=== PATIENT | female | born 1980 | race Caucasian/White ===

== ENCOUNTER 2016-11-15 10:50 | Outpatient (CLI) | payer OTHER ==
[~2016-11-15 10:50] MED LIST: B-650 MG; CORRECTOL100 MG PO; IBUPROFEN200 M1 PO; LANSINOH0.25 GM TOP; OXYCODONE/ACETA1 TA1 PO; PRENATAL1 TAB; TYLENOL325 MG PO; UNISOM25 MG; ZANTAC 150 MAX150 MG PO
--- NOTE | 2016-11-15 12:45 | DIAGNOSTIC IMAGING REPORT ---
PROCEDURE: US OB 1ST TRIMESTER W/TRANSVAG INDICATION: SIZE AND DATES TECHNIQUE: Seay scale, color, and spectral Doppler transabdominal and endovaginal sonographic images of the first trimester gravid uterus were obtained. COMPARISON: None during this . FINDINGS: TRANSABDOMINAL SCANS: There is a gestational sac eccentrically located in the fundal endometrium with mild decidual response. The uterus is anteverted and anteflexed. A thin-walled right ovarian cyst measures 4.7 cm. No micaela ovarian fluid. Left ovary was not seen transabdominally. TRANSVAGINAL SCANS: The gestational sac is lobulated, partially involuting. A pole is present with an average crown-rump length of 5.1 mm which corresponds to a 0-hmhe-4-day gestation. A normal yolk sac measuring 4 mm is visible. There is detectable cardiac activity and pole at a rate of 110 beats per minute. No perigestational hemorrhage. The cervix is closed and measures about 3.2 cm in length. The left ovary has a normal appearance. Simple right ovarian cyst measuring 4.8 cm is present. No free pelvic fluid. IMPRESSION: 1. There is a live intrauterine with crown rump length corresponding to a 7-clgf-8-day gestational age. Heart rate of 110 is low. Gestational sac is irregular, partially involuted, and decidual response is only mild. Follow- up ultrasound in 1 week to confirm viability is recommended. 2. Thin-walled 4.7 cm right ovarian cyst, probably corpus luteum.
--- NOTE | 2016-11-15 12:45 | DIAGNOSTIC IMAGING REPORT ---
PROCEDURE: US OB 1ST TRIMESTER W/TRANSVAG INDICATION: SIZE AND DATES TECHNIQUE: Seay scale, color, and spectral Doppler transabdominal and endovaginal sonographic images of the first trimester gravid uterus were obtained. COMPARISON: None during this . FINDINGS: TRANSABDOMINAL SCANS: There is a gestational sac eccentrically located in the fundal endometrium with mild decidual response. The uterus is anteverted and anteflexed. A thin-walled right ovarian cyst measures 4.7 cm. No micaela ovarian fluid. Left ovary was not seen transabdominally. TRANSVAGINAL SCANS: The gestational sac is lobulated, partially involuting. A pole is present with an average crown-rump length of 5.1 mm which corresponds to a 6-mnte-1-day gestation. A normal yolk sac measuring 4 mm is visible. There is detectable cardiac activity and pole at a rate of 110 beats per minute. No perigestational hemorrhage. The cervix is closed and measures about 3.2 cm in length. The left ovary has a normal appearance. Simple right ovarian cyst measuring 4.8 cm is present. No free pelvic fluid. IMPRESSION: 1. There is a live intrauterine with crown rump length corresponding to a 5-oiys-4-day gestational age. Heart rate of 110 is low. Gestational sac is irregular, partially involuted, and decidual response is only mild. Follow- up ultrasound in 1 week to confirm viability is recommended. 2. Thin-walled 4.7 cm right ovarian cyst, probably corpus luteum.
== END 2016-11-15 23:00 ==
LOC: US SRH 10:50
DX: Z34.01 Encounter for supervision of normal first pregnancy, first trimester (principal); Z3A.01 Less than 8 weeks gestation of pregnancy